=== PATIENT | female | born 1960 | race African-American/Black ===

== ENCOUNTER 2016-09-27 13:52 | Emergency (ER) | payer OTHER ==
[2016-09-27 14:00] VITALS: BP 106/56
== END 2016-09-27 17:55 | disposition home or self-care (01) ==
LOC: ED 13:52
DX: M62.830 Muscle spasm of back (principal); M62.838 Other muscle spasm; I10 Essential (primary) hypertension; E11.9 Type 2 diabetes mellitus without complications; E78.5 Hyperlipidemia, unspecified; J45.909 Unspecified asthma, uncomplicated; F17.200 Nicotine dependence, unspecified, uncomplicated; Z79.84 Long term (current) use of oral hypoglycemic drugs
CPT/HCPCS: 20552; J2001

== ENCOUNTER 2017-09-23 11:57 | Emergency (ER) | payer OTHER ==
[~2017-09-23] VITALS: Ht 165.1 cm; Wt 94.8 kg
[2017-09-23 12:04] VITALS: BP 145/77; Ht 165.1 cm; Wt 94.8 kg
== END 2017-09-23 12:35 | disposition home or self-care (01) ==
LOC: ED 11:57
DX: S13.4XXA Sprain of ligaments of cervical spine, initial encounter (principal); M54.9 Dorsalgia, unspecified; E11.9 Type 2 diabetes mellitus without complications; J45.909 Unspecified asthma, uncomplicated; I10 Essential (primary) hypertension; E78.00 Pure hypercholesterolemia, unspecified; V89.2XXA Person injured in unspecified motor-vehicle accident, traffic, initial encounter; Y93.89 Activity, other specified; Y92.89 Other specified places as the place of occurrence of the external cause; Y99.8 Other external cause status

== ENCOUNTER 2017-11-12 13:55 | Observation (INO) | payer OTHER ==
[~2017-11-12] VITALS: Ht 165.1 cm; Wt 95.8 kg
[2017-11-12 13:59] VITALS: Ht 165.1 cm; Wt 95.8 kg
[2017-11-12 15:35] LABS: PLATELET COUNT 277 x10^3mcL (130-400); RED CELL DISTRIBUTION WIDTH 12.6 % (11.5-14.5)
[2017-11-12 15:40] LABS: BASOPHIL % 3.3 % (0-2)
[2017-11-12 15:41] LABS: CALCIUM 9.1 mg/dL (8.5-10.1); CARBON DIOXIDE 27.9 mmol/L (21-32); CREATININE SERUM 1.3 mg/dL (0.6-1.0); POTASSIUM SERUM 4.3 mmol/L (3.5-5.1)
[2017-11-12 15:47] LABS: ALBUMIN 3.6 g/dL (3.4-5.0); BILIRUBIN TOTAL 0.32 mg/dL (0.20-1.00); TOTAL PROTEIN, SERUM 7.5 g/dL (6.4-8.2)
[2017-11-12] MEDS ORDERED: PROMETHAZI6.25 MG/5 (16:55)
[2017-11-12] MEDS ORDERED: NEU300 PO (16:55)
[2017-11-12] MEDS ORDERED: TRAZODONE50 M1 (16:56)
[2017-11-12] MEDS ORDERED: NOR10T PO (17:01)
[2017-11-12] MEDS ORDERED: SOMA350 MG PO (17:02)
[2017-11-12] MEDS ORDERED: PEPCID20 MG PO (17:02)
[2017-11-12] MEDS ORDERED: ALBUTEROL1.25 MG/3 (17:02)
[2017-11-12] MEDS ORDERED: VICTOZA6 MG/M1 (17:03)
[2017-11-12] MEDS ORDERED: TRESIBA FL100 UNIT/1 SQ (17:03)
[2017-11-12] MEDS ORDERED: SEROQUEL400 M1 PO (17:03)
[2017-11-12] MEDS ORDERED: LEXAPRO20 MG PO (17:03)
[2017-11-12 18:01] VITALS: BP 99/72
[2017-11-12 20:05] VITALS: BP 127/73
[2017-11-13 05:30] VITALS: BP 114/71
[2017-11-13 06:07] LABS: CALCIUM 8.9 mg/dL (8.5-10.1); CARBON DIOXIDE 27.9 mmol/L (21-32); CHOLESTEROL/HDL RATIO 5.2; CREATININE SERUM 1.2 mg/dL (0.6-1.0); POTASSIUM SERUM 4.2 mmol/L (3.5-5.1)
[2017-11-13 09:12] VITALS: BP 133/65
[2017-11-13 10:06] VITALS: BP 133/65
== END 2017-11-13 11:46 | disposition home or self-care (01) | DRG 313 ==
LOC: ED 13:55 → DU 17:07
PROVIDERS: Emergency Medicine; Internal Medicine Pulmonary Disease
DX: R07.89 Other chest pain (principal); E11.65 Type 2 diabetes mellitus with hyperglycemia; I10 Essential (primary) hypertension; E78.5 Hyperlipidemia, unspecified; J45.909 Unspecified asthma, uncomplicated; E66.9 Obesity, unspecified; Z72.0 Tobacco use
CPT/HCPCS: 82962; 83880; 85378; G0378; J1650; J1815; J7030; Q0092

== ENCOUNTER 2018-05-24 12:54 | Emergency (ER) | payer OTHER ==
[~2018-05-24] VITALS: Ht 162.6 cm; Wt 91.6 kg
[~2018-05-24 12:54] MED LIST: ALBUTEROL1.25 MG/3; LEXAPRO20 MG PO; NEU300 PO; NOR10T PO; PEPCID20 MG PO; PROMETHAZI6.25 MG/5; SEROQUEL400 M1 PO; SOMA350 MG PO; TRAZODONE50 M1; TRESIBA FL100 UNIT/1 SQ; VICTOZA6 MG/M1
[2018-05-24 12:59] VITALS: Ht 162.6 cm; Wt 91.6 kg
[2018-05-24 13:51] VITALS: BP 166/84
== END 2018-05-24 16:47 | disposition home or self-care (01) ==
LOC: ED 12:54
DX: H66.92 Otitis media, unspecified, left ear (principal); H10.33 Unspecified acute conjunctivitis, bilateral; F17.210 Nicotine dependence, cigarettes, uncomplicated; J45.909 Unspecified asthma, uncomplicated; E11.9 Type 2 diabetes mellitus without complications
CPT/HCPCS: 99406

== ENCOUNTER 2018-09-14 16:40 | Emergency (ER) | payer OTHER ==
[~2018-09-14] VITALS: Ht 162.6 cm; Wt 90.3 kg
[2018-09-14 16:45] VITALS: Ht 162.6 cm; Wt 90.3 kg
[2018-09-14 17:13] LABS: BASOPHIL % 0.3 % (0-2); PLATELET COUNT 238 x10^3mcL (130-400); RED CELL DISTRIBUTION WIDTH 13.9 % (11.5-14.5)
[2018-09-14 17:23] LABS: CALCIUM 10.3 mg/dL (8.5-10.1); CARBON DIOXIDE 28.7 mmol/L (21-32); CREATININE SERUM 1.3 mg/dL (0.6-1.0); POTASSIUM SERUM 4.4 mmol/L (3.5-5.1)
[2018-09-14 17:28] LABS: ALBUMIN 3.6 g/dL (3.4-5.0); BILIRUBIN TOTAL 0.4 mg/dL (0.20-1.00); TOTAL PROTEIN, SERUM 7.3 g/dL (6.4-8.2)
[2018-09-14 17:52] VITALS: BP 144/72
== END 2018-09-14 17:52 | disposition home or self-care (01) ==
LOC: ED 16:40
PROVIDERS: Emergency Medicine
DX: R07.2 Precordial pain (principal); E11.22 Type 2 diabetes mellitus with diabetic chronic kidney disease; N18.9 Chronic kidney disease, unspecified; J45.909 Unspecified asthma, uncomplicated; F17.210 Nicotine dependence, cigarettes, uncomplicated; Z88.6 Allergy status to analgesic agent
CPT/HCPCS: 36415; Q0092

== ENCOUNTER 2018-12-13 10:25 | Emergency (ER) | payer OTHER ==
[~2018-12-13] VITALS: Ht 162.6 cm; Wt 81.2 kg
[2018-12-13 10:34] VITALS: Ht 162.6 cm; Wt 81.2 kg
[2018-12-13 11:46] LABS: BASOPHIL % 0.5 % (0-2); PLATELET COUNT 237 x10^3mcL (130-400); RED CELL DISTRIBUTION WIDTH 13.6 % (11.5-14.5)
[2018-12-13 12:17] VITALS: BP 167/79
[2018-12-13 12:50] LABS: CALCIUM 10.1 mg/dL (8.5-10.1); CARBON DIOXIDE 27.8 mmol/L (21-32); CREATININE SERUM 1.3 mg/dL (0.6-1.0); POTASSIUM SERUM 4.5 mmol/L (3.5-5.1)
[2018-12-13 13:02] LABS: ALBUMIN 3.7 g/dL (3.4-5.0); BILIRUBIN TOTAL 0.3 mg/dL (0.20-1.00); T4(THYROXINE) 8.5 ug/dL (4.7-13.3); TOTAL PROTEIN, SERUM 8.1 g/dL (6.4-8.2)
== END 2018-12-13 13:39 | disposition left against medical advice (07) ==
LOC: ED 10:25
PROVIDERS: Emergency Medicine
DX: E11.65 Type 2 diabetes mellitus with hyperglycemia (principal); M25.552 Pain in left hip; M54.5 Low back pain; M25.562 Pain in left knee; R07.89 Other chest pain; F17.210 Nicotine dependence, cigarettes, uncomplicated; J45.909 Unspecified asthma, uncomplicated; R35.8 Other polyuria; Z88.6 Allergy status to analgesic agent
CPT/HCPCS: 36600; 82962; 83880; 87804; 99406; J1815; J7030; Q0092

== ENCOUNTER 2019-03-20 12:01 | Observation (INO) | payer OTHER ==
[~2019-03-20] VITALS: Ht 162.6 cm; Wt 72.6 kg
[2019-03-20 12:18] VITALS: Ht 162.6 cm; Wt 72.6 kg
[2019-03-20 12:48] LABS: BASOPHIL % 0.6 % (0-2); PLATELET COUNT 213 x10^3mcL (130-400); RED CELL DISTRIBUTION WIDTH 13.3 % (11.5-14.5)
[2019-03-20 12:58] LABS: CALCIUM 9.6 mg/dL (8.5-10.1); CARBON DIOXIDE 15.4 mmol/L (21-32); CREATININE SERUM 2.5 mg/dL (0.6-1.0); POTASSIUM SERUM 3.6 mmol/L (3.5-5.1)
[2019-03-20 13:03] LABS: ALBUMIN 3.6 g/dL (3.4-5.0); BILIRUBIN TOTAL 0.53 mg/dL (0.20-1.00); TOTAL PROTEIN, SERUM 7.3 g/dL (6.4-8.2)
[2019-03-20 18:19] VITALS: BP 133/58
[2019-03-20 20:04] VITALS: BP 131/74
[2019-03-21 07:48] VITALS: BP 127/79
[2019-03-21 13:17] LABS: BASOPHIL % 0.6 % (0-2); PLATELET COUNT 202 x10^3mcL (130-400); RED CELL DISTRIBUTION WIDTH 13.5 % (11.5-14.5)
[2019-03-21 13:23] VITALS: BP 133/76
[2019-03-21 13:36] LABS: BILIRUBIN TOTAL 0.42 mg/dL (0.20-1.00); CALCIUM 9.6 mg/dL (8.5-10.1); CARBON DIOXIDE 21.4 mmol/L (21-32); CREATININE SERUM 2.2 mg/dL (0.6-1.0); POTASSIUM SERUM 3.1 mmol/L (3.5-5.1); TOTAL PROTEIN, SERUM 6.8 g/dL (6.4-8.2)
[2019-03-21 13:37] LABS: ALBUMIN 3.2 g/dL (3.4-5.0)
[2019-03-21 14:00] LABS: UA SPECIFIC GRAVITY 1.015 (1.005-1.035); microscopic required? YES; urine erythrocyte NEGATIVE (NEGATIVE)
[2019-03-21] MEDS ORDERED: QUETIAPINE FUM300 MG PO (15:23)
[2019-03-21] MEDS ORDERED: PROLIA60 MG/ML (15:24)
[2019-03-21] MEDS ORDERED: CARISOPRODOL350 MG PO (15:24)
[2019-03-21] MEDS ORDERED: ATORVASTATIN CA40 M1 PO (15:26)
[2019-03-21] MEDS ORDERED: BLOOD LANCETS1 EACH TOP (15:27)
[2019-03-21] MEDS ORDERED: GLUCOSE TEST S1 EACH MC (15:27)
[2019-03-21 15:44] VITALS: BP 133/76
== END 2019-03-21 16:51 | disposition home or self-care (01) ==
LOC: ED 12:01 → DU 16:40
PROVIDERS: ADMIT Hospitalist
DX: E11.42 Type 2 diabetes mellitus with diabetic polyneuropathy (principal); E11.65 Type 2 diabetes mellitus with hyperglycemia; E11.22 Type 2 diabetes mellitus with diabetic chronic kidney disease; F31.9 Bipolar disorder, unspecified; I12.9 Hypertensive chronic kidney disease with stage 1 through stage 4 chronic kidney disease, or unspecified chronic kidney disease; N18.9 Chronic kidney disease, unspecified; N17.9 Acute kidney failure, unspecified
CPT/HCPCS: G0378; J1644; J1885; J7030; J7120; Q0092

== ENCOUNTER 2019-10-04 13:28 | Emergency (ER) | payer OTHER, MEDICAID ==
[~2019-10-04] VITALS: Ht 162.6 cm; Wt 63.5 kg
[~2019-10-04 13:28] MED LIST changes: +ASPIRIN FOR CHI81 M1 PO; +ATORVASTATIN CA40 M1 PO; +BLOOD LANCETS1 EACH TOP; +CARISOPRODOL350 MG PO; +GLUCOSE TEST S1 EACH MC; +PROLIA60 MG/ML; +QUETIAPINE FUM300 MG PO
[2019-10-04 13:42] VITALS: Ht 162.6 cm; Wt 63.5 kg
[2019-10-04 14:31] LABS: BASOPHIL % 0.1 % (0-2); PLATELET COUNT 175 x10^3mcL (130-400); RED CELL DISTRIBUTION WIDTH 13.5 % (11.5-14.5)
[2019-10-04 16:08] LABS: CALCIUM 10.2 mg/dL (8.5-10.1); CARBON DIOXIDE 18.7 mmol/L (21-32); CREATININE SERUM 1.2 mg/dL (0.6-1.0); POTASSIUM SERUM 3.9 mmol/L (3.5-5.1)
[2019-10-04 16:13] LABS: ALBUMIN 3.7 g/dL (3.4-5.0); BILIRUBIN TOTAL 0.5 mg/dL (0.20-1.00); TOTAL PROTEIN, SERUM 7.1 g/dL (6.4-8.2)
[2019-10-04 18:37] LABS: microscopic required? YES; urine erythrocyte 1+ (NEGATIVE)
[2019-10-04 19:51] VITALS: BP 188/98
== END 2019-10-04 19:51 | disposition home or self-care (01) ==
LOC: ED 13:28
PROVIDERS: Emergency Medicine
DX: N39.0 Urinary tract infection, site not specified (principal); R53.1 Weakness; J45.909 Unspecified asthma, uncomplicated; E11.9 Type 2 diabetes mellitus without complications; Z86.73 Personal history of transient ischemic attack (TIA), and cerebral infarction without residual deficits; Z88.6 Allergy status to analgesic agent
CPT/HCPCS: 83880; J7030; Q0092

== ENCOUNTER 2019-12-21 12:14 | Emergency (ER) | payer OTHER, MEDICAID ==
[~2019-12-21] VITALS: Ht 162.6 cm; Wt 66.2 kg
[2019-12-21 12:20] VITALS: Ht 162.6 cm; Wt 66.2 kg
[2019-12-21 13:36] LABS: CALCIUM 9.7 mg/dL (8.5-10.1); CARBON DIOXIDE 27.4 mmol/L (21-32); CREATININE SERUM 1.2 mg/dL (0.6-1.0); POTASSIUM SERUM 4.9 mmol/L (3.5-5.1)
[2019-12-21 13:40] LABS: ALBUMIN 3.7 g/dL (3.4-5.0); BILIRUBIN TOTAL 0.45 mg/dL (0.20-1.00); TOTAL PROTEIN, SERUM 6.9 g/dL (6.4-8.2)
[2019-12-21 13:46] LABS: BASOPHIL % 1.3 % (0-2); PLATELET COUNT 210 x10^3mcL (130-400); RED CELL DISTRIBUTION WIDTH 14.2 % (11.5-14.5)
[2019-12-21 14:03] VITALS: BP 177/77
== END 2019-12-21 14:52 | disposition home or self-care (01) ==
LOC: ED 12:14
PROVIDERS: Emergency Medicine
DX: G89.29 Other chronic pain (principal); R10.13 Epigastric pain; R10.12 Left upper quadrant pain; J45.909 Unspecified asthma, uncomplicated; E11.9 Type 2 diabetes mellitus without complications; Z88.6 Allergy status to analgesic agent
CPT/HCPCS: J2270; J2405; J7030